=== PATIENT | male | born 1980 | race Caucasian/White ===

== ENCOUNTER → 2017-05-29 | Outpatient (CLI) | payer BC | END | disposition home or self-care (01) | LOC: C.PATHSPEC 13:16 | PROVIDERS: ATTEND Dermatology | DX: D23.9 Other benign neoplasm of skin, unspecified (principal) ==

== ENCOUNTER → 2017-11-08 | Outpatient (CLI) | payer BC ==
--- NOTE | 2017-11-09 22:39 | POLYSOMNOGRAPH REPORT ---
CLINICAL DATA: A 37-year-old male with BMI of 35.[address] Austin Murdock with a history of reflux, depression, anxiety, fatigue, and low energy. He also has snoring and daytime sleepiness. His Adrian sleepiness score is 8/24. SLEEP ARCHITECTURE: Total sleep period was 487 minutes. Total sleep time was 399.5 minutes divided between 304.5 minutes of non-REM sleep and 95 minutes of REM sleep. Sleep latency was 20 minutes. REM latency was delayed at 253.5 minutes. Sleep efficiency was reduced at 78%. Wake after sleep onset was 92 minutes. Sleep consisted of stage N1 8%, stage N2 68%, and REM 24%. AROUSAL DATA: 72 arousals were recorded for an index of 11 per hour; 48 were spontaneous. PLM DATA: Mildly elevated limb movements during sleep were noted. There were 139 limb movements during sleep noted for an index of 21 per hour with arousal index of 0.9 per hour. RESPIRATORY DATA: There was no evidence of clinically significant sleep apnea. The AHI was 1.4. The RDI was 1.7. There were 9 hypopneic episodes with a mean duration of 17.2 seconds. There were 2 RERAs. The longest RERA was 13.9 seconds. OXIMETRY DATA: No significant hypoxemia was seen. Oxygen len was 85% during non-REM sleep and mean saturation was 91%. Time below 88% was 3 minutes. EKG: Heart rates ranged from 49-77 beats per minute. No arrhythmias were noted. PRODUCTION CONSULTANT'S COMMENTS: The patient slept in the right, left, and supine positions. Bruxism was noted. Snoring was moderate, rated 3 on a scale of 1-5. IMPRESSION: No evidence of clinically significant sleep apnea/hypopnea or nocturnal hypoxemia. There were mildly elevated limb movements during sleep, possibly consistent with periodic limb movement disorder. The patient also had bruxism. RECOMMENDATIONS: The patient may benefit from use of bite guard for bruxism. He should continue to practice good sleep hygiene. There is no need for CPAP, BiPAP, or oxygen. [facility], [place]
== END | disposition home or self-care (01) ==
LOC: C.NEUR 20:00
PROVIDERS: ATTEND Family Medicine
DX: R06.83 Snoring (principal); G47.8 Other sleep disorders